=== PATIENT | female | born 1950 | race Caucasian/White ===

== ENCOUNTER 2016-10-26 16:31 | Emergency (ER) | payer OTHER ==
[~2016-10-26] VITALS: Ht 160 cm; Wt 70.0 kg
[~2016-10-26 16:31] MED LIST: LORTA5 PO; ZOLO50TA PO; ZOLP1TAB32 PO
[2016-10-26 16:39] VITALS: BP 144/92; PULSE 82; RESP 22; TEMP 98.4; O2SAT 97
--- NOTE | 2016-10-26 17:00 | PD ---
HPI Chief Complaint: GI Complaint Time Seen by Provider: 17:00 Travel History International Travel<30 days: No Contact w/Intl Traveler<30days: No Traveled to known affect area: No History of Present Illness HPI 66-year-old female with history of chronic pain, anxiety, fibroids, migraine headaches, presents to the emergency department for evaluation of epigastric pain radiating to her pelvis. Patient states that she had eaten and all of a sudden developed severe sharp pain in her epigastrium. She states it is generalized her abdomen from her epigastrium to her pelvis. She has been nauseous without vomiting. She has had soft stool today but no diarrhea. No recent illnesses, fever, chills. No chest parotitis. No difficulty breathing. No other symptoms to report. PFSH Past Medical History Arthritis: Yes Anxiety: Yes Depression: Yes High Cholesterol: Yes Diminished Hearing: No GERD: Yes Headaches: Yes Neurologic: Yes (NECK INJURY, FALL AT JOB--01/2012) Immunizations Current: Yes Migraines: Yes ?: Not Menopausal: Yes : 1 Para: 1 Miscarriage: 0 : 0 Past Surgical History Hysterectomy: No Social History Alcohol Use: No Tobacco Use: No Substance Use: No Allergies-Medications (Allergen,Severity, Reaction): Coded Allergies: No Known Allergies (Verified , 05/30/16) Reported Meds & Prescriptions Reported Meds & Active Scripts Active [place] 5-325 mg (Hydrocodone-Acetaminophen 5-325 mg) 5 mg/325 mg Tab 1 Tab PO Q6H PRN Reported Ambien 5 Mg Tab (Zolpidem Tartrate) 5 Mg Tab 5 Mg PO HS PRN Zoloft (Sertraline HCl) 50 Mg Tab 100 Mg PO HS Review of Systems Except as stated in HPI: all other systems reviewed are Neg Physical Exam Narrative GENERAL: Well-nourished female patient, lying in bed, in mild distress secondary to pain SKIN: Warm and dry. HEAD: Atraumatic. Normocephalic. EYES: Pupils equal and round. No scleral icterus. No injection or drainage. ENT: No nasal bleeding or discharge. Mucous membranes pink and moist. NECK: Trachea midline. No JVD. CARDIOVASCULAR: Regular rate and rhythm. No murmur appreciated. RESPIRATORY: No accessory muscle use. Clear to auscultation. Breath sounds equal bilaterally. GASTROINTESTINAL: Abdomen soft, nondistended. Generalized tenderness to palpation however most significant tenderness in the epigastrium and left upper quadrant as well as the suprapubic area. I do not feel any pulsations. I do not hear any bruits. Hepatic and splenic margins not palpable. MUSCULOSKELETAL: No obvious deformities. No clubbing. No cyanosis. No edema. Distal pulses are palpable. NEUROLOGICAL: Awake and alert. No obvious cranial nerve deficits. Motor grossly within normal limits. Normal speech. PSYCHIATRIC: Appropriate mood and affect; insight and judgment normal. Data Data Last Documented VS Vital Signs Date Time Temp Pulse Resp B/P Pulse Ox O2 Delivery O2 Flow Rate FiO2 10/26/16 16:39 98.4 82 22 144/92 97 Orders Complete Blood Count With Diff (10/26/16 16:58) Comprehensive Metabolic Panel (10/26/16 16:58) Lipase (10/26/16 16:58) Lactic Acid (10/26/16 16:58) Prothrombin Time / Inr (Pt) (10/26/16 16:58) Act Partial Throm Time (Ptt) (10/26/16 16:58) Urinalysis - C+S If Indicated (10/26/16 16:58) Abdomen, Flat & Upright (10/26/16 ) Electrocardiogram (10/26/16 16:58) Ckmb (Isoenzyme) Profile (10/26/16 16:58) Troponin I (10/26/16 16:58) CKMB (10/26/16 17:45) CKMB% (10/26/16 17:45) Labs Laboratory Tests Test 10/26/16 10/26/16 17:40 17:45 Urine Color YELLOW Urine Turbidity HAZY Urine pH 8.5 Urine Specific [place] 1.013 Urine Protein NEG mg/dL Urine Glucose (UA) NEG mg/dL Urine Ketones NEG mg/dL Urine Occult Blood NEG Urine Nitrite NEG Urine Bilirubin NEG Urine Urobilinogen LESS THAN 2.0 MG/DL Urine Leukocyte Esterase NEG Urine RBC 5 /hpf Urine WBC 1 /hpf Urine Renal Epithelial Cells <1 /hpf Urine Amorphous Sediment RARE Microscopic Urinalysis Comment CULT NOT INDICATED White Blood Count 11.5 TH/MM3 Red Blood Count 5.32 MIL/MM3 Hemoglobin 14.8 GM/DL Hematocrit 44.6 % Mean Corpuscular Volume 83.9 FL Mean Corpuscular Hemoglobin 27.8 PG Mean Corpuscular Hemoglobin 33.1 % Concent Red Cell Distribution Width 14.8 % Platelet Count 246 TH/MM3 Mean Platelet Volume 8.0 FL Neutrophils (%) (Auto) 80.6 % Lymphocytes (%) (Auto) 15.0 % Monocytes (%) (Auto) 4.2 % Eosinophils (%) (Auto) 0.1 % Basophils (%) (Auto) 0.1 % Neutrophils # (Auto) 9.3 TH/MM3 Lymphocytes # (Auto) 1.7 TH/MM3 Monocytes # (Auto) 0.5 TH/MM3 Eosinophils # (Auto) 0.0 TH/MM3 Basophils # (Auto) 0.0 TH/MM3 CBC Comment DIFF FINAL Differential Comment Prothrombin Time 10.5 SEC Prothromb Time International 1.0 RATIO Ratio Activated Partial 26.8 SEC Thromboplast Time Sodium Level 139 MEQ/L Potassium Level 3.7 MEQ/L Chloride Level 101 MEQ/L Carbon Dioxide Level 26.5 MEQ/L Anion Gap 12 MEQ/L Blood Urea Nitrogen 18 MG/DL Creatinine 0.85 MG/DL Estimat Glomerular Filtration 67 ML/MIN Rate Random Glucose 136 MG/DL Calcium Level 9.2 MG/DL Total Bilirubin 0.2 MG/DL Aspartate Amino Transf 18 U/L (AST/SGOT) Alanine Aminotransferase 25 U/L (ALT/SGPT) Alkaline Phosphatase 103 U/L Total Creatine Kinase 146 U/L Troponin I LESS THAN 0.02 NG/ML Total Protein 8.7 GM/DL Albumin 4.1 GM/DL Lipase 252 U/L MDM Medical Decision Making Medical Screen Exam Complete: Yes Emergency Medical Condition: Yes Medical Record Reviewed: Yes Differential Diagnosis Gastritis versus pancreatitis versus cholecystitis versus UTI versus GI bleed versus dissection Narrative Course 66-year-old female presents to the emergency department for evaluation. Patient appears very and comparable. She has generalized tenderness to palpation of her abdomen however most significant tenderness is in the epigastrium and left upper quadrant suprapubic area. Workup was initiated in triage. Once a medical bed becomes available, patient will be transferred and care assumed by the provider. Norma Shaver Oct 26, 2016 17:00
--- NOTE | 2016-10-26 17:25 | RADRPT ---
EXAM DATE/TIME: 10/26/2016 17:14 [facility] COMPARISON: CT ABDOMEN & PELVIS W CONTRAST, May 30, 2016, 3:16. INDICATIONS : Abdominal pain. MEDICAL HISTORY : None. SURGICAL HISTORY : None. ENCOUNTER: Initial ACUITY: 1 day PAIN SCORE: 10/10 LOCATION: Bilateral upper quadrant abdomen. FINDINGS: Supine and upright views of the abdomen were performed. The abdominal bowel gas pattern is normal. No air fluid levels are seen. No abnormal masses, calcifications, or organomegaly is seen. The visu alized lower lungs are clear. No evidence of free intraperitoneal gas. There is a stable benign-appe aring sclerotic focus in the left iliac wing. Mild scoliotic curvature and degenerative change in the spine. CONCLUSION: Nonspecific, benign and appearance. Benji Flynn MD on October 26, 2016 at 17:23 Board Certified Radiologist. This report was verified electronically.
[2016-10-26 18:00] LABS: BLOOD, URINE NEG (NEG); COMMENT (UR) CULT NOT INDICATED; CULTURE IF INDICATED CULT NOT INDICATED; GLUCOSE,URINE NEG (NEG); KETONE, URINE NEG (NEG); NITRITE,URINE NEG (NEG); PH, URINE 8.5 (5.0-8.5); RENAL EPITHELIAL CELLS <1 /hpf; URINE COLOR YELLOW (YELLW/STRAW)
[2016-10-26 18:12] LABS: AUTOMATED NEUTROPHIL # 9.3 TH/MM3 (1.8-7.7); BASOPHIL % 0.1 % (0.0-2.0); EOSINOPHIL % 0.1 % (0.0-4.0); HEMATOCRIT 44.6 % (35.0-46.0); LYMPHOCYTE # 1.7 TH/MM3 (1.0-4.8); MEAN CELL VOLUME 83.9 FL (80.0-100.0); MEAN CORPUSCULAR HEMOGLOBIN 27.8 PG (27.0-34.0); MEAN CORPUSCULAR HGB CONC 33.1 % (32.0-36.0); MONO % 4.2 % (0.0-8.0); NEUT % 80.6 % (16.0-70.0); PLATELET COUNT 246 TH/MM3 (150-450); RED BLOOD COUNT 5.32 MIL/MM3 (4.00-5.30); RED CELL DISTRIBUTION WIDTH 14.8 % (11.6-17.2); WHITE BLOOD COUNT 11.5 TH/MM3 (4.0-11.0)
[2016-10-26 18:14] LABS: HEMO FLAGS DIFF FINAL
[2016-10-26 18:17] LABS: APTT (PATIENT) 26.8 SEC (24.3-30.1); PROTHROMBIN TIME - PATIENT 10.5 SEC (9.8-11.6)
[2016-10-26 18:21] LABS: ANION GAP 12 MEQ/L (5-15); AST (GOT) 18 U/L (15-37); BICARBONATE 26.5 MEQ/L (21.0-32.0); BLOOD UREA NITROGEN 18 MG/DL (7-18); CHLORIDE 101 MEQ/L (98-107); GLOMERULAR FILTRATION RATE 67 ML/MIN (>89); POTASSIUM 3.7 MEQ/L (3.5-5.1); SODIUM (NA) 139 MEQ/L (136-145)
[2016-10-26 18:26] LABS: ALKALINE PHOSPHATASE 103 U/L (45-117); ALT (GPT) 25 U/L (10-53); CREATINE KINASE 146 U/L (26-192); TOTAL BILIRUBIN ADULT 0.2 MG/DL (0.2-1.0)
[2016-10-26 18:38] LABS: CKMB 0.7 NG/ML (0.5-3.6)
[2016-10-26] MEDS ORDERED: HYDROmorphone HCL PF 1 MG/ML VIAL IV PUSH ONE (18:45)
--- NOTE | 2016-10-26 19:10 | PD ---
Physical Exam Date Seen by Provider: Oct 26, 2016 Time Seen by Provider: 19:08 Narrative The patient is a 66-year-old female was initially evaluated by the previous physician, Dr. Hinkle. Please refer to the initial history, physical, diagnostic evaluation, and treatment modality plan. The patient was signed out at [address] of the abdomen and pelvis pending. Data Data Last Documented VS Vital Signs Date Time Temp Pulse Resp B/P Pulse Ox O2 Delivery O2 Flow Rate FiO2 10/26/16 20:07 77 22 140/84 98 10/26/16 16:39 98.4 Orders Complete Blood Count With Diff (10/26/16 16:58) Comprehensive Metabolic Panel (10/26/16 16:58) Lipase (10/26/16 16:58) Lactic Acid (10/26/16 16:58) Prothrombin Time / Inr (Pt) (10/26/16 16:58) Act Partial Throm Time (Ptt) (10/26/16 16:58) Urinalysis - C+S If Indicated (10/26/16 16:58) Abdomen, Flat & Upright (10/26/16 ) Electrocardiogram (10/26/16 16:58) Ckmb (Isoenzyme) Profile (10/26/16 16:58) Troponin I (10/26/16 16:58) CKMB (10/26/16 17:45) CKMB% (10/26/16 17:45) Ct Abd/Pel W Iv Contrast(Rout) (10/26/16 ) Hydromorphone Pf Inj (Dilaudid Pf Inj) (10/26/16 18:45) Iohexol 350 Inj (Omnipaque 350 Inj) (10/26/16 19:44) Labs Laboratory Tests Test 10/26/16 10/26/16 10/26/16 17:40 17:45 18:05 Urine Color YELLOW Urine Turbidity HAZY Urine pH 8.5 Urine Specific [place] 1.013 Urine Protein NEG mg/dL Urine Glucose (UA) NEG mg/dL Urine Ketones NEG mg/dL Urine Occult Blood NEG Urine Nitrite NEG Urine Bilirubin NEG Urine Urobilinogen LESS THAN 2.0 MG/DL Urine Leukocyte Esterase NEG Urine RBC 5 /hpf Urine WBC 1 /hpf Urine Renal Epithelial Cells <1 /hpf Urine Amorphous Sediment RARE Microscopic Urinalysis Comment CULT NOT INDICATED White Blood Count 11.5 TH/MM3 Red Blood Count 5.32 MIL/MM3 Hemoglobin 14.8 GM/DL Hematocrit 44.6 % Mean Corpuscular Volume 83.9 FL Mean Corpuscular Hemoglobin 27.8 PG Mean Corpuscular Hemoglobin 33.1 % Concent Red Cell Distribution Width 14.8 % Platelet Count 246 TH/MM3 Mean Platelet Volume 8.0 FL Neutrophils (%) (Auto) 80.6 % Lymphocytes (%) (Auto) 15.0 % Monocytes (%) (Auto) 4.2 % Eosinophils (%) (Auto) 0.1 % Basophils (%) (Auto) 0.1 % Neutrophils # (Auto) 9.3 TH/MM3 Lymphocytes # (Auto) 1.7 TH/MM3 Monocytes # (Auto) 0.5 TH/MM3 Eosinophils # (Auto) 0.0 TH/MM3 Basophils # (Auto) 0.0 TH/MM3 CBC Comment DIFF FINAL Differential Comment Prothrombin Time 10.5 SEC Prothromb Time International 1.0 RATIO Ratio Activated Partial 26.8 SEC Thromboplast Time Sodium Level 139 MEQ/L Potassium Level 3.7 MEQ/L Chloride Level 101 MEQ/L Carbon Dioxide Level 26.5 MEQ/L Anion Gap 12 MEQ/L Blood Urea Nitrogen 18 MG/DL Creatinine 0.85 MG/DL Estimat Glomerular Filtration 67 ML/MIN Rate Random Glucose 136 MG/DL Calcium Level 9.2 MG/DL Total Bilirubin 0.2 MG/DL Aspartate Amino Transf 18 U/L (AST/SGOT) Alanine Aminotransferase 25 U/L (ALT/SGPT) Alkaline Phosphatase 103 U/L Total Creatine Kinase 146 U/L Creatine Kinase MB 0.7 NG/ML Troponin I LESS THAN 0.02 NG/ML Total Protein 8.7 GM/DL Albumin 4.1 GM/DL Lipase 252 U/L Lactic Acid Level 1.8 mmol/L [facility] Medical Record Reviewed: Yes Supervised Visit with CÉSAR: No Interpretation(s) Laboratory Tests Test 10/26/16 10/26/16 10/26/16 17:40 17:45 18:05 Urine Color YELLOW Urine Turbidity HAZY Urine pH 8.5 Urine Specific [place] 1.013 Urine Protein NEG mg/dL Urine Glucose (UA) NEG mg/dL Urine Ketones NEG mg/dL Urine Occult Blood NEG Urine Nitrite NEG Urine Bilirubin NEG Urine Urobilinogen LESS THAN 2.0 MG/DL Urine Leukocyte Esterase NEG Urine RBC 5 /hpf Urine WBC 1 /hpf Urine Renal Epithelial Cells <1 /hpf Urine Amorphous Sediment RARE Microscopic Urinalysis Comment CULT NOT INDICATED White Blood Count 11.5 TH/MM3 Red Blood Count 5.32 MIL/MM3 Hemoglobin 14.8 GM/DL Hematocrit 44.6 % Mean Corpuscular Volume 83.9 FL Mean Corpuscular Hemoglobin 27.8 PG Mean Corpuscular Hemoglobin 33.1 % Concent Red Cell Distribution Width 14.8 % Platelet Count 246 TH/MM3 Mean Platelet Volume 8.0 FL Neutrophils (%) (Auto) 80.6 % Lymphocytes (%) (Auto) 15.0 % Monocytes (%) (Auto) 4.2 % Eosinophils (%) (Auto) 0.1 % Basophils (%) (Auto) 0.1 % Neutrophils # (Auto) 9.3 TH/MM3 Lymphocytes # (Auto) 1.7 TH/MM3 Monocytes # (Auto) 0.5 TH/MM3 Eosinophils # (Auto) 0.0 TH/MM3 Basophils # (Auto) 0.0 TH/MM3 CBC Comment DIFF FINAL Differential Comment Prothrombin Time 10.5 SEC Prothromb Time International 1.0 RATIO Ratio Activated Partial 26.8 SEC Thromboplast Time Sodium Level 139 MEQ/L Potassium Level 3.7 MEQ/L Chloride Level 101 MEQ/L Carbon Dioxide Level 26.5 MEQ/L Anion Gap 12 MEQ/L Blood Urea Nitrogen 18 MG/DL Creatinine 0.85 MG/DL Estimat Glomerular Filtration 67 ML/MIN Rate Random Glucose 136 MG/DL Calcium Level 9.2 MG/DL Total Bilirubin 0.2 MG/DL Aspartate Amino Transf 18 U/L (AST/SGOT) Alanine Aminotransferase 25 U/L (ALT/SGPT) Alkaline Phosphatase 103 U/L Total Creatine Kinase 146 U/L Creatine Kinase MB 0.7 NG/ML Troponin I LESS THAN 0.02 NG/ML Total Protein 8.7 GM/DL Albumin 4.1 GM/DL Lipase 252 U/L Lactic Acid Level 1.8 mmol/L Last Impressions Abdomen/Pelvis CT 10/26/16 0000 Signed Impressions: Service Date/Time: October 19:30 - CONCLUSION: Abnormal bowel gas pattern most likely ileus as described above. Stomach has marked amount retained food stuffs in the small bowel throughout is mildly dilated disproportionate relative to colon through the terminal ileum without evidence of a lesion for obstruction or site of the obstruction Rod Grubbs MD Abdomen X-Ray 10/26/16 0000 Signed Impressions: Service Date/Time: October 17:14 - CONCLUSION: Nonspecific, benign and appearance. Benji Flynn MD Differential Diagnosis Differential diagnosis includes diverticulitis, colitis, enteritis, pancreatitis , atypical appendicitis, pyelonephritis, UTI. Narrative Course The patient was initially evaluated by the previous physician, Dr. Hinkle. Please refer to the initial history, physical, diagnostic evaluation, and treatment modality plan. The patient was signed out at [address] of the abdomen and pelvis pending. Abdominal x-ray was benign. White count was mildly elevated at 11.5. LFTs and lipase are normal. CT the abdomen and pelvis reveals dilated bowel pattern, may be suggestive of ileus, no evidence of bowel obstruction. The patient was reevaluated at 8:33 PM. The patient states her pain has resolved, therefore, after discussion with the patient it was agreed she would have a by mouth challenge, if she is able tolerate oral intake, the patient feels well enough to go home. At 8:35 PM the patient was given fluids to evaluate for by mouth toleration. The patient was able to tolerate Gatorade without difficulty. We had a discussion regarding 23 hour observation for ileus versus conservative management at home. The patient would prefer to go home. I will prescribe Zofran and pain medications. She is advised to have a clear liquid diet and advance as tolerated. Return if symptoms worsen or progress. Patient is comfortable with this plan of care and disposition. Diagnosis Primary Impression: Abdominal pain Qualified Code: R10.84 - Generalized abdominal pain Additional Impression: Ileus Patient Instructions: General Instructions Additional Instruction: Medications as directed. Follow-up with your primary physician. Return if symptoms worsen or progress. Clear liquid diet and advance as tolerated. Please provide the patient a copy of her labs and x-rays/CT report at discharge. Med/Other Pt SpecificInfo: Prescription(s) given Scripts Hydrocodone-Acetaminophen ([place])5-325 mg Tab1 Tab PO Q6H PRN (PAIN) #12 TAB Ref 0 Prov:Sai Devlin MD 10/26/16 Ondansetron Odt (Zofran Odt)4 Mg Tab4 Mg SL Q6HR PRN (Nausea/Vomiting) #7 TAB Ref 0 Prov:Sai Devlin MD 10/26/16 Disposition: 01 DISCHARGE HOME Condition: Stable Sai Devlin MD Oct 26, 2016 19:10
--- NOTE | 2016-10-26 19:30 | PD ---
Data Data Last Documented VS Vital Signs Date Time Temp Pulse Resp B/P Pulse Ox O2 Delivery O2 Flow Rate FiO2 10/26/16 16:39 98.4 82 22 144/92 97 Orders Complete Blood Count With Diff (10/26/16 16:58) Comprehensive Metabolic Panel (10/26/16 16:58) Lipase (10/26/16 16:58) Lactic Acid (10/26/16 16:58) Prothrombin Time / Inr (Pt) (10/26/16 16:58) Act Partial Throm Time (Ptt) (10/26/16 16:58) Urinalysis - C+S If Indicated (10/26/16 16:58) Abdomen, Flat & Upright (10/26/16 ) Electrocardiogram (10/26/16 16:58) Ckmb (Isoenzyme) Profile (10/26/16 16:58) Troponin I (10/26/16 16:58) CKMB (10/26/16 17:45) CKMB% (10/26/16 17:45) Ct Abd/Pel W Iv Contrast(Rout) (10/26/16 ) Hydromorphone Pf Inj (Dilaudid Pf Inj) (10/26/16 18:45) Labs Laboratory Tests Test 10/26/16 10/26/16 10/26/16 17:40 17:45 18:05 Urine Color YELLOW Urine Turbidity HAZY Urine pH 8.5 Urine Specific [place] 1.013 Urine Protein NEG mg/dL Urine Glucose (UA) NEG mg/dL Urine Ketones NEG mg/dL Urine Occult Blood NEG Urine Nitrite NEG Urine Bilirubin NEG Urine Urobilinogen LESS THAN 2.0 MG/DL Urine Leukocyte Esterase NEG Urine RBC 5 /hpf Urine WBC 1 /hpf Urine Renal Epithelial Cells <1 /hpf Urine Amorphous Sediment RARE Microscopic Urinalysis Comment CULT NOT INDICATED White Blood Count 11.5 TH/MM3 Red Blood Count 5.32 MIL/MM3 Hemoglobin 14.8 GM/DL Hematocrit 44.6 % Mean Corpuscular Volume 83.9 FL Mean Corpuscular Hemoglobin 27.8 PG Mean Corpuscular Hemoglobin 33.1 % Concent Red Cell Distribution Width 14.8 % Platelet Count 246 TH/MM3 Mean Platelet Volume 8.0 FL Neutrophils (%) (Auto) 80.6 % Lymphocytes (%) (Auto) 15.0 % Monocytes (%) (Auto) 4.2 % Eosinophils (%) (Auto) 0.1 % Basophils (%) (Auto) 0.1 % Neutrophils # (Auto) 9.3 TH/MM3 Lymphocytes # (Auto) 1.7 TH/MM3 Monocytes # (Auto) 0.5 TH/MM3 Eosinophils # (Auto) 0.0 TH/MM3 Basophils # (Auto) 0.0 TH/MM3 CBC Comment DIFF FINAL Differential Comment Prothrombin Time 10.5 SEC Prothromb Time International 1.0 RATIO Ratio Activated Partial 26.8 SEC Thromboplast Time Sodium Level 139 MEQ/L Potassium Level 3.7 MEQ/L Chloride Level 101 MEQ/L Carbon Dioxide Level 26.5 MEQ/L Anion Gap 12 MEQ/L Blood Urea Nitrogen 18 MG/DL Creatinine 0.85 MG/DL Estimat Glomerular Filtration 67 ML/MIN Rate Random Glucose 136 MG/DL Calcium Level 9.2 MG/DL Total Bilirubin 0.2 MG/DL Aspartate Amino Transf 18 U/L (AST/SGOT) Alanine Aminotransferase 25 U/L (ALT/SGPT) Alkaline Phosphatase 103 U/L Total Creatine Kinase 146 U/L Creatine Kinase MB 0.7 NG/ML Troponin I LESS THAN 0.02 NG/ML Total Protein 8.7 GM/DL Albumin 4.1 GM/DL Lipase 252 U/L Lactic Acid Level 1.8 mmol/L MDM Supervised Visit with CÉSAR: Yes Narrative Course The history, exam, and medical decision-making in the associated midlevel provider note were completed with my assistance. I reviewed and agree with the findings presented. I attest that I had a [id number] encounter with the patient on the same day, and personally performed and documented my assessment and findings in the medical record. *My assessment and Findings: I seemed care of this patient from [facility] who saw her in triage. This patient had onset of abdominal pain fairly abrupt that started 2 PM after eating. Her abdomen is diffusely tender but not peritoneal. Labs are all reassuring. I think she requires a CT. If CT is reassuring and I don't suspect a surgical etiology of her symptoms and she can be discharged home. Condition: Stable Bia Hinkle MD Oct 26, 2016 19:30
[2016-10-26] MEDS ORDERED: IOHEXOL 350 MG/ML 10 ML VIAL (for RAD DIAG) IV ONE (19:44)
--- NOTE | 2016-10-26 19:59 | RADRPT ---
EXAM DATE/TIME: 10/26/2016 19:30 [facility] COMPARISON: CT ABDOMEN & PELVIS W CONTRAST, May 30, 2016, 3:16. INDICATIONS : Eppigastric pain today. IV CONTRAST: 68 cc Omnipaque 350 (iohexol) IV ORAL CONTRAST: No oral contrast ingested. RADIATION DOSE: 9.96 CTDIvol (mGy) MEDICAL HISTORY : Arthritis. SURGICAL HISTORY : Hysterectomy. ENCOUNTER: Initial ACUITY: 1 day PAIN SCALE: 8/10 LOCATION: Abdomen TECHNIQUE: Volumetric scanning of the abdomen and pelvis was performed. Using automated exposure control and adjustment of the mA and/or kV according to patient size, radiation dose was kept as low as reasonably achievable to obtain optimal diagnostic quality images. FINDINGS: LOWER LUNGS: The visualized lower lungs are clear. LIVER: Homogeneous density without lesion. There is no dilation of the biliary tree. No calcifi ed gallstones. SPLEEN: Normal size without lesion. PANCREAS: Within normal limits. KIDNEYS: Normal in size and shape. There is no mass, stone or hydronephrosis. ADRENAL GLANDS: Within normal limits. VASCULAR: There is no aortic aneurysm. BOWEL/MESENTERY: The colon is normal. There is retention of food stuffs in material within the st omach with mild dilatation distal portion relative to colon of the small bowel throughout ascending t o the terminal ileum. No specific site of obstruction or mass is identified and this may represent an ileus pattern. ABDOMINAL WALL: Within normal limits. RETROPERITONEUM: There is no lymphadenopathy. BLADDER: No wall thickening or mass. REPRODUCTIVE: Within normal limits. INGUINAL: There is no lymphadenopathy or hernia. MUSCULOSKELETAL: Within normal limits for patient age. CONCLUSION: Abnormal bowel gas pattern most likely ileus as described above. Stomach has marked a mount retained food stuffs in the small bowel throughout is mildly dilated disproportionate relative to colon through the terminal ileum without evidence of a lesion for obstruction or site of the obstr uction Rod Grubbs MD on October 26, 2016 at 19:52 Board Certified Radiologist. This report was verified electronically.
[2016-10-26 20:07] VITALS: BP 140/84; PULSE 77; RESP 22; O2SAT 98
[2016-10-26] MEDS ORDERED: ZOFR4TAB3 SL (21:14)
[2016-10-26] MEDS ORDERED: NORC5TAB PO (21:14)
--- NOTE | 2016-10-27 17:27 | EKG ---
Date Performed: 10/26/2016 Time Performed: 17:05:19 PTAGE: 66 years EKG: Sinus rhythm POSSIBLE LEFT ATRIAL ENLARGEMENT BORDERLINE ECG PREVIOUS TRACING : 04/12/2015 21.15 Since previous tracing, no significant change noted DOCTOR: Kay Miles Interpretating Date/Time 10/27/2016 17:21:56
== END 2016-10-26 21:43 | disposition home or self-care (01) ==
LOC: NEPC 16:31
DX: R10.84 Generalized abdominal pain (principal); E78.00 Pure hypercholesterolemia, unspecified; K21.9 Gastro-esophageal reflux disease without esophagitis; K56.7 Ileus, unspecified; R94.31 Abnormal electrocardiogram [ECG] [EKG]
CPT/HCPCS: 74020; 74177; 80053; 81001; 82550; 82552; 83605; 83690; 84484; 85025; 85610; 85730; 93005; 96374; 99284; J1170; Q9967

== ENCOUNTER 2018-01-10 20:05 | Emergency (ER) | payer MEDICARE, OTHER ==
[~2018-01-10] VITALS: Ht 165.1 cm; Wt 65.0 kg
[~2018-01-10 20:05] MED LIST changes: +NORC5TAB PO; +ZOFR4TAB3 SL
[2018-01-10 20:17] VITALS: BP 145/65; PULSE 80; RESP 16; TEMP 97.5; O2SAT 99
[2018-01-10] MEDS ORDERED: AMBI10TA PO (21:41)
[2018-01-10] MEDS ORDERED: OXYC30TA PO (21:41)
[2018-01-10] MEDS ORDERED: MELO7.5T27 PO (21:41)
[2018-01-10] MEDS ORDERED: SODIUM CHLOR 0.9% 1000 ML INJ 1,000 ML IV SCH (21:54)
[2018-01-10] MEDS ORDERED: METOCLOPRAMIDE INJ 10 MG in SODIUM CHLORIDE 0.9% INJ 50 ML IV ONE (22:00)
[2018-01-10] MEDS ORDERED: KETOROLAC TROMETHAMINE 30 MG/ML (IVP) VIAL IVP ONE (22:00)
--- NOTE | 2018-01-10 22:02 | PD ---
HPI Chief Complaint: Headache Time Seen by Provider: 21:37 Travel History International Travel<30 days: No Contact w/Intl Traveler<30days: No Traveled to known affect area: No History of Present Illness HPI 67yo F with PMH of headaches, chronic back pain on oxycodone here with multiple complaints. Pt has been having headache since yesterday and it is associated with dizziness, nausea, vomiting which is normal for her during her headaches. Said she has been having headaches on and off for six years. Pt also with lower abdominal pain that is sharp today. Said it started after she ate the food her brought home. Denies any fever, neck pain, chest pain, sob, focal weakness or numbness. PFSH Past Medical History Arthritis: Yes Anxiety: Yes Depression: Yes High Cholesterol: Yes Diminished Hearing: No GERD: Yes Headaches: Yes Neurologic: Yes (NECK INJURY, FALL AT JOB--01/2012) Immunizations Current: Yes Migraines: Yes Menopausal: Yes : 1 Para: 1 Miscarriage: 0 : 0 Past Surgical History Surgical History: No Previous Surgery Hysterectomy: No Social History Alcohol Use: No Tobacco Use: No (quit) Substance Use: No Allergies-Medications (Allergen,Severity, Reaction): Coded Allergies: No Known Allergies (Verified Adverse Reaction, Unknown, 01/10/18) Reported Meds & Prescriptions Reported Meds & Active Scripts Active Tylenol (Acetaminophen) 325 Mg Tab 650 Mg PO Q6H PRN [place] (Hydrocodone-Acetaminophen) 5-325 mg Tab 1 Tab PO Q6H PRN Reported Meloxicam 7.5 Mg Tab 7.5 Mg PO DAILY Ambien (Zolpidem Tartrate) 10 Mg Tab 10 Mg PO HS PRN Oxycodone (Oxycodone HCl) 30 Mg Tab 30 Mg PO TID PRN Review of Systems Except as stated in HPI: all other systems reviewed are Neg Physical Exam Narrative GENERAL: 67yo F in mild distress. SKIN: Focused skin assessment warm/dry. HEAD: Atraumatic. Normocephalic. EYES: Pupils equal and round. No scleral icterus. No injection or drainage. ENT: No nasal bleeding or discharge. Mucous membranes pink and moist. NECK: No nuchal rigidity. CARDIOVASCULAR: Regular rate and rhythm. No murmur appreciated. RESPIRATORY: No accessory muscle use. Clear to auscultation. Breath sounds equal bilaterally. GASTROINTESTINAL: Abdomen soft, +TTP LLQ and RLQ. No rebound tenderness or guarding. MUSCULOSKELETAL: No obvious deformities. No clubbing. No cyanosis. No edema. NEUROLOGICAL: Awake and alert. No obvious cranial nerve deficits. Motor grossly within normal limits in all extremities. Sensation equal. Normal speech. PSYCHIATRIC: Appropriate mood and affect; insight and judgment normal. Data Data Last Documented VS Vital Signs Date Time Temp Pulse Resp B/P (MAP) Pulse Ox O2 Delivery O2 Flow Rate FiO2 01/10/18 20:17 97.5 80 16 145/65 (91) 99 Orders Orders Complete Blood Count With Diff (01/10/18 21:54) Comprehensive Metabolic Panel (01/10/18 21:54) Lipase (01/10/18 21:54) Urinalysis - C+S If Indicated (01/10/18 21:54) Ct Abd/Pel W Iv Contrast(Rout) (01/10/18 21:54) Sodium Chlor 0.9% 1000 Ml Inj (Ns 1000 M (01/10/18 21:54) Electrocardiogram (01/10/18 21:54) Ketorolac Inj (Toradol Inj) (01/10/18 22:00) Metoclopramide Inj (Reglan Inj) (01/10/18 22:00) Iohexol 350 Inj (Omnipaque 350 Inj) (01/11/18 00:11) Ed Discharge Order (01/11/18 00:46) Labs Laboratory Tests Test 01/10/18 22:10 01/10/18 22:15 White Blood Count 10.1 TH/MM3 Red Blood Count 4.72 MIL/MM3 Hemoglobin 13.4 GM/DL Hematocrit 40.1 % Mean Corpuscular Volume 85.0 FL Mean Corpuscular Hemoglobin 28.5 PG Mean Corpuscular Hemoglobin Concent 33.5 % Red Cell Distribution Width 13.8 % Platelet Count 219 TH/MM3 Mean Platelet Volume 7.9 FL Neutrophils (%) (Auto) 85.7 % Lymphocytes (%) (Auto) 11.7 % Monocytes (%) (Auto) 2.2 % Eosinophils (%) (Auto) 0.1 % Basophils (%) (Auto) 0.3 % Neutrophils # (Auto) 8.7 TH/MM3 Lymphocytes # (Auto) 1.2 TH/MM3 Monocytes # (Auto) 0.2 TH/MM3 Eosinophils # (Auto) 0.0 TH/MM3 Basophils # (Auto) 0.0 TH/MM3 CBC Comment DIFF FINAL Differential Comment Blood Urea Nitrogen 24 MG/DL Creatinine 0.84 MG/DL Random Glucose 112 MG/DL Total Protein 8.0 GM/DL Albumin 3.9 GM/DL Calcium Level 9.2 MG/DL Alkaline Phosphatase 90 U/L Aspartate Amino Transf (AST/SGOT) 41 U/L Alanine Aminotransferase (ALT/SGPT) 27 U/L Total Bilirubin 0.4 MG/DL Sodium Level 141 MEQ/L Potassium Level 5.0 MEQ/L Chloride Level 105 MEQ/L Carbon Dioxide Level 27.7 MEQ/L Anion Gap 8 MEQ/L Estimat Glomerular Filtration Rate 68 ML/MIN Lipase 91 U/L Urine Color LIGHT-YELLOW Urine Turbidity HAZY Urine pH 8.0 Urine Specific [place] 1.014 Urine Protein NEG mg/dL Urine Glucose (UA) NEG mg/dL Urine Ketones NEG mg/dL Urine Occult Blood NEG Urine Nitrite NEG Urine Bilirubin NEG Urine Urobilinogen LESS THAN 2.0 MG/DL Urine Leukocyte Esterase NEG Urine RBC 2 /hpf Urine WBC 1 /hpf Urine Squamous Epithelial Cells <1 /hpf Urine Amorphous Sediment RARE Microscopic Urinalysis Comment CULT NOT INDICATED MDM Medical Decision Making Medical Screen Exam Complete: Yes Emergency Medical Condition: Yes Interpretation(s) EKG: NSR 66bpm. Normal axis. No ST segment elevation or depression. Differential Diagnosis Migraine headache vs. tension headache vs. diverticulitis vs. colitis vs. UTI Narrative Course 67yo F here with multiple complaints. Her main complaint is her headache which sounds like the usual headache she gets in the last six years. Her headache is usually associated with dizziness and vomiting. Pt given reglan and toradol and reevaluated at bedside. Said headache, nausea and dizziness has completely resolved. Pt said she still have some lower abdominal pain, mainly on left side. Labs reviewed, no leukocytosis. H/H normal. BUN mildly elevated. Pt already given NS IVF. Lipase normal. UA negative. CT a/p showed no acute inflammatory process. Tolerating PO. Pt is well appearing and wants to go home. Return precautions given. Pt also wants me to refer her to a inner tube inserter because she has a history of ovarian cyst and wants to follow up. Diagnosis Primary Impression: Headache Qualified Codes: R51 - Headache Additional Impression: Abdominal pain Qualified Codes: R10.12 - Left upper quadrant pain Referrals: Benji Owens MD call for appointment Patient Instructions: General Instructions Departure Forms: Tests/Procedures Additional Instructions: Please follow up with your primary care physician in 2-3 days. Return to the ED if symptoms worsen. Med/Other Pt SpecificInfo: Prescription(s) given Scripts Acetaminophen (Tylenol) 325 Mg Tab 650 MG PO Q6H Y for PAIN SCALE 1 TO 4, #20 TAB 0 Refills Prov: Ignacia Silverio DO 01/11/18 Disposition: 01 DISCHARGE HOME Condition: Stable Ignacia Silverio DO January 10, 2018 22:02
[2018-01-10 22:47] LABS: AUTOMATED NEUTROPHIL # 8.7 TH/MM3 (1.8-7.7); BASOPHIL % 0.3 % (0.0-2.0); EOSINOPHIL % 0.1 % (0.0-4.0); HEMATOCRIT 40.1 % (35.0-46.0); HEMOGLOBIN 13.4 GM/DL (11.6-15.3); LYMPH % 11.7 % (9.0-44.0); LYMPHOCYTE # 1.2 TH/MM3 (1.0-4.8); MEAN CORPUSCULAR HEMOGLOBIN 28.5 PG (27.0-34.0); MEAN CORPUSCULAR HGB CONC 33.5 % (32.0-36.0); MEAN PLATELET VOLUME 7.9 FL (7.0-11.0); MONO % 2.2 % (0.0-8.0); MONOCYTE # 0.2 TH/MM3 (0-0.9); NEUT % 85.7 % (16.0-70.0); PLATELET COUNT 219 TH/MM3 (150-450); RED BLOOD COUNT 4.72 MIL/MM3 (4.00-5.30); RED CELL DISTRIBUTION WIDTH 13.8 % (11.6-17.2); WHITE BLOOD COUNT 10.1 TH/MM3 (4.0-11.0)
[2018-01-10 22:50] LABS: AMORPHOUS SEDIMENT, URINE RARE; BILIRUBIN, URINE NEG (NEG); BLOOD, URINE NEG (NEG); GLUCOSE,URINE NEG (NEG); KETONE, URINE NEG (NEG); NITRITE,URINE NEG (NEG); SQUAMOUS EPITHELIAL CELL URINE <1 /hpf (0-5); URINE COLOR LIGHT-YELLOW (YELLW/STRAW); URINE LEUKOCYTE ESTERASE NEG (NEG)
[2018-01-10 23:37] LABS: ALBUMIN 3.9 GM/DL (3.4-5.0); AST (GOT) 41 U/L (15-37); BICARBONATE 27.7 MEQ/L (21.0-32.0); BLOOD UREA NITROGEN 24 MG/DL (7-18); CALCIUM 9.2 MG/DL (8.5-10.1); CHLORIDE 105 MEQ/L (98-107); CREATININE 0.84 MG/DL (0.50-1.00); GLOMERULAR FILTRATION RATE 68 ML/MIN (>89); GLUCOSE,RANDOM 112 MG/DL (74-106); SODIUM (NA) 141 MEQ/L (136-145)
[2018-01-10 23:40] LABS: ALKALINE PHOSPHATASE 90 U/L (45-117); ALT (GPT) 27 U/L (10-53); TOTAL BILIRUBIN ADULT 0.4 MG/DL (0.2-1.0)
[2018-01-11] MEDS ORDERED: IOHEXOL 350 MG/ML 10 ML VIAL (for RAD DIAG) IVCONTRAST ONE (00:11)
--- NOTE | 2018-01-11 00:39 | RADRPT ---
EXAM DATE/TIME: 01/11/2018 00:02 [facility] COMPARISON: CT ABDOMEN & PELVIS W CONTRAST, October 26, 2016, 19:30. INDICATIONS : Lower abdominal pain. IV CONTRAST: 95 cc Omnipaque 350 (iohexol) IV ORAL CONTRAST: No oral contrast ingested. RADIATION DOSE: 7.62 CTDIvol (mGy) MEDICAL HISTORY : Gastroesophageal reflux disease. SURGICAL HISTORY : None. ENCOUNTER: Initial ACUITY: 1 day PAIN SCALE: 9/10 LOCATION: Bilateral lower quadrant TECHNIQUE: Volumetric scanning of the abdomen and pelvis was performed. Using automated exposure control and ad justment of the mA and/or kV according to patient size, radiation dose was kept as low as reasonably achievable to obtain optimal diagnostic quality images. DICOM format image data is available electro nically for review and comparison. FINDINGS: LOWER LUNGS: The visualized lower lungs are clear. LIVER: Homogeneous density without lesion. There is no dilation of the biliary tree. No calcified gallston es. SPLEEN: Normal size without lesion. PANCREAS: Within normal limits. KIDNEYS: Normal in size and shape. There is no mass, stone or hydronephrosis. ADRENAL GLANDS: Within normal limits. VASCULAR: There is no aortic aneurysm. BOWEL/MESENTERY: The stomach, small bowel, and colon demonstrate no acute abnormality. There is no free intraperitone al air or fluid. ABDOMINAL WALL: Within normal limits. RETROPERITONEUM: There is no lymphadenopathy. BLADDER: No wall thickening or mass. REPRODUCTIVE: Within normal limits. INGUINAL: There is no lymphadenopathy or hernia. MUSCULOSKELETAL: Within normal limits for patient age. CONCLUSION: No acute inflammatory process. Ney Douglass MD on January 11, 2018 at 0:36 Board Certified Radiologist. This report was verified electronically.
[2018-01-11] MEDS ORDERED: TYLE325T PO (00:46)
--- NOTE | 2018-01-12 08:31 | EKG ---
Date Performed: 01/10/2018 Time Performed: 23:09:28 PTAGE: 67 years EKG: Sinus rhythm WITH OCCASIONAL SUPRAVENTRICULAR PREMATURE COMPLEXES POSSIBLE LEFT ATRIAL ENLARGEMENT BORDERLINE ECG PREVIOUS TRACING : 10/26/2016 17.05 DOCTOR: Andres Major Interpretating Date/Time 01/12/2018 08:28:50
== END 2018-01-11 01:10 | disposition home or self-care (01) ==
LOC: NEPD 20:05
DX: R51 Headache (principal); R10.12 Left upper quadrant pain; R11.2 Nausea with vomiting, unspecified; R42 Dizziness and giddiness; M19.90 Unspecified osteoarthritis, unspecified site; F41.9 Anxiety disorder, unspecified; F32.9 Major depressive disorder, single episode, unspecified; E78.00 Pure hypercholesterolemia, unspecified; K21.9 Gastro-esophageal reflux disease without esophagitis
CPT/HCPCS: 74177; 80053; 81001; 83690; 85025; 93005; 96374; 96375; 99285; J1885; J2765; J7030; Q9967